=== PATIENT | female | born 1955 | race African-American/Black ===

== ENCOUNTER 2019-10-06 13:52 | Emergency (ER) | payer OTHER, MEDICAID ==
[~2019-10-06] VITALS: Ht 165.1 cm; Wt 55.0 kg
[2019-10-06] MEDS ORDERED: VANCOMYCIN 1 G PREMIX 200 ML IV ONE (14:45)
[2019-10-06] MEDS ORDERED: SODIUM CHLORIDE 0.9% 1000ML BAG (SEPSIS BOLUS) IV ONE (14:45)
[2019-10-06] MEDS ORDERED: PIPERACILLIN/TAZ 3.375G PREMIX 50 ML IV ONE (14:45)
[2019-10-06 15:23] LABS: BASOPHILS % 0.8 % (0.0-2.0); EOSINOPHILS % 1.5 % (0.0-5.0); HEMATOCRIT. 27.4 % (36.0-48.0); LYMPHOCYTES % 23.6 % (20.0-50.0); MEAN CORPUSCULAR VOLUME 84.9 fL (81.0-99.0); MEAN PLATELET VOLUME 8.8 fl (7.4-10.4); MONOCYTES % 8.4 % (2.0-8.0); NEUTROPHILS % 65.7 % (40.0-76.0); PLATELET 321 x1000/uL (130-400); RED BLOOD CELL COUNT 3.23 mill/uL (4.2-5.4); RED CELL DISTRIBUTION WIDTH 16.2 % (11.6-14.6)
[2019-10-06 15:29] LABS: CHLORIDE 95 mEq/L (98-107); INR 0.9; PROTHROMBIN TIME 9.4 sec (9.6-11.0)
[2019-10-06 15:34] LABS: ETHANOL BLOOD < 10 mg/dL
[2019-10-06] MEDS ORDERED: LOPERAMIDE HCL 2MG CAPSULE PO ONE (17:00)
[2019-10-06 22:54] VITALS: BP 122/68
== END 2019-10-06 23:18 | disposition short-term general hospital (02) ==
LOC: ER 13:52 → CANBEDREQ 10-07 00:08
DX: A41.9 Sepsis, unspecified organism (principal); I21.4 Non-ST elevation (NSTEMI) myocardial infarction; E11.9 Type 2 diabetes mellitus without complications; I11.0 Hypertensive heart disease with heart failure; I50.9 Heart failure, unspecified; Z86.73 Personal history of transient ischemic attack (TIA), and cerebral infarction without residual deficits
CPT/HCPCS: 36415; 70450; 71045; 74176; 80053; 80320; 83605; 83690; 83880; 84145; 84484; 85025; 85610; 86850; 86900; 86901; 87040; 87804; 93005; 99291; J2543; J3370; J7030; G0480

== ENCOUNTER 2022-09-21 13:09 | Inpatient (IN) | payer OTHER, MEDICAID ==
[~2022-09-21] VITALS: Ht 160 cm; Wt 55.8 kg
[2022-09-21] MEDS ORDERED: METOCLOPRAMIDE HCL 10MG/2ML VIAL IV ONE (13:30)
[2022-09-21] MEDS ORDERED: HYDRALAZINE 20MG/ML VIAL IV ONE (13:30)
[2022-09-21] MEDS ORDERED: DIPHENHYDRAMINE 50MG/ML VIAL IV ONE (13:30)
[2022-09-21 15:27] LABS: BASOPHILS % 0.8 % (0.0-2.0); EOSINOPHILS % 1.5 % (0.0-5.0); HEMATOCRIT. 36.7 % (36.0-48.0); HEMOGLOBIN. 12.1 g/dL (12.0-16.0); LYMPHOCYTES % 23.4 % (20.0-50.0); MEAN CORPUSCULAR HEMOGLOBIN 31.6 pg (28.0-32.0); MEAN CORPUSCULAR VOLUME 95.5 fL (81.0-99.0); MEAN PLATELET VOLUME 9.7 fl (7.4-10.4); MONOCYTES % 11.3 % (2.0-8.0); PLATELET 174 x1000/uL (130-400); RED BLOOD CELL COUNT 3.84 mill/uL (4.2-5.4); RED CELL DISTRIBUTION WIDTH 13.5 % (11.6-14.6)
[2022-09-21 15:33] LABS: CHLORIDE 95 mEq/L (98-107)
[2022-09-21] MEDS ORDERED: MORPHINE SULFATE 4 MG/ML CPJ (NOT FOR IM USE) IV STA (15:58)
[2022-09-21] MEDS ORDERED: ONDANSETRON HCL 4MG/2ML INJ IV STA (15:58)
[2022-09-21] MEDS ORDERED: ASPIRIN 81MG TABLET PO ONE (16:00)
[2022-09-21 17:08] LABS: INR 0.9; PARTIAL THROMBOPLASTIN TIME 28.2 sec (23.4-31.0)
[2022-09-21] MEDS ORDERED: CLONIDINE 0.2MG TABLET PO ONE (17:30)
[2022-09-21] MEDS ORDERED: IPRATROPIUM/ALBUTEROL 0.5-3(2.5)MG/3ML NEB NEB PRN (18:45)
[2022-09-21] MEDS ORDERED: DEXTROSE 50% WATER 50ML SYRINGE IV PRN (18:45)
[2022-09-21] MEDS ORDERED: ONDANSETRON HCL 4MG/2ML INJ IV PRN (18:45)
[2022-09-21] MEDS ORDERED: HYDROCODONE/ACETAMINOPHEN 5/325MG TABLET PO PRN (18:45)
[2022-09-21] MEDS ORDERED: CLONIDINE 0.1MG TABLET PO PRN (18:45)
[2022-09-21] MEDS ORDERED: ACETAMINOPHEN 325MG TABLET PO PRN ×2 (18:45)
[2022-09-21] MEDS: INSULIN LISPRO 100 UNITS/ML SUBCUT SCH ×2 (18:45→21:49)
[2022-09-21] MEDS ORDERED: MAGNESIUM/ALUMINUM HYDROXIDE/SIMETHICONE 30ML UDC PO PRN (18:45)
[2022-09-21 20:45] VITALS: BP 194/93
[2022-09-21 20:49] VITALS: BP 194/93
[2022-09-21] MEDS: HYDRALAZINE 20MG/ML VIAL IV PRN (21:46)
[2022-09-21] MEDS: INSULIN GLARGINE 100 UNITS/ML SUBCUT SCH (21:48)
[2022-09-21] MEDS: BLOOD SUGAR DIAGNOSTIC STRIP TEST SCH (21:49)
[2022-09-21 21:56] VITALS: BP 202/94
[2022-09-21 23:52] VITALS: BP 128/67
[2022-09-22] VITALS (11 sets, daily range): BP systolic 134–173; BP diastolic 67–91
[2022-09-22 01:58] LABS: CREATINE KINASE MB FRACTION 3.3 ng/mL (0.5-3.6)
[2022-09-22] MEDS: FUROSEMIDE 40MG/4ML VIAL IVP SCH ×2 (05:20→18:10)
[2022-09-22 06:40] LABS: BASOPHILS % 0.7 % (0.0-2.0); EOSINOPHILS % 3.2 % (0.0-5.0); HEMATOCRIT. 34.6 % (36.0-48.0); HEMOGLOBIN. 11.3 g/dL (12.0-16.0); LYMPHOCYTES % 32.7 % (20.0-50.0); MEAN CORPUSCULAR HEMOGLOBIN 31.3 pg (28.0-32.0); MEAN CORPUSCULAR VOLUME 95.7 fL (81.0-99.0); MEAN PLATELET VOLUME 9.4 fl (7.4-10.4); MONOCYTES % 11.4 % (2.0-8.0); PLATELET 171 x1000/uL (130-400); RED BLOOD CELL COUNT 3.62 mill/uL (4.2-5.4); RED CELL DISTRIBUTION WIDTH 13.4 % (11.6-14.6)
[2022-09-22 06:47] LABS: CREATINE KINASE MB FRACTION 3.1 ng/mL (0.5-3.6)
[2022-09-22] MEDS: INSULIN LISPRO 100 UNITS/ML SUBCUT SCH ×4 (08:00→21:00)
[2022-09-22] MEDS: BLOOD SUGAR DIAGNOSTIC STRIP TEST SCH ×4 (08:04→21:27)
[2022-09-22] MEDS ORDERED: AMLODIPINE 5MG TABLET PO SCH (09:00)
[2022-09-22 10:05] LABS: CHLORIDE 97 mEq/L (98-107)
[2022-09-22 10:29] LABS: HDL CHOLESTEROL 75 mg/dL (40-59); LDL CHOLESTEROL 139 mg/dL (5-100); T4 FREE 1.03 ng/dL (0.76-1.46)
[2022-09-22] MEDS ORDERED: HYDRALAZINE 20MG/ML VIAL IV NR (11:15)
[2022-09-22] MEDS: HYDRALAZINE 20MG/ML VIAL IV PRN (11:18)
[2022-09-22] MEDS ORDERED: REGADENOSON 0.4 MG/5 ML IV NR (11:30)
[2022-09-22] MEDS ORDERED: LOSARTAN POTASSIUM 100 MG TABLET PO SCH (12:00)
[2022-09-22] MEDS ORDERED: KCL 20MEQ/100ML PREMIX 100 ML IV NR (13:00)
[2022-09-22] MEDS ORDERED: AMLODIPINE 5MG TABLET PO NR (14:00)
[2022-09-22] MEDS ORDERED: HYDRALAZINE HCL 25MG TABLET PO SCH (14:00)
[2022-09-22] MEDS: HYDRALAZINE HCL 50MG TABLET PO SCH ×2 (14:48→21:27)
[2022-09-22] MEDS ORDERED: NALOXONE HCL 0.4MG/ML VIAL IV PRN (18:15)
[2022-09-22 18:20] LABS: HEPATITIS B SURFACE ANTIGEN NEGATIVE
[2022-09-22] MEDS: INSULIN GLARGINE 100 UNITS/ML SUBCUT SCH (21:26)
[2022-09-22] MEDS: METOPROLOL TARTRATE 25MG TABLET PO SCH (21:27)
[2022-09-23] VITALS (22 sets, daily range): BP systolic 127–184; BP diastolic 69–98
[2022-09-23] MEDS: FUROSEMIDE 40MG/4ML VIAL IVP SCH (06:00)
[2022-09-23] MEDS: HYDRALAZINE HCL 50MG TABLET PO SCH (06:38)
[2022-09-23 07:18] LABS: BASOPHILS % 0.4 % (0.0-2.0); EOSINOPHILS % 2.3 % (0.0-5.0); HEMATOCRIT. 37.1 % (36.0-48.0); HEMOGLOBIN. 12.3 g/dL (12.0-16.0); LYMPHOCYTES % 20.2 % (20.0-50.0); MEAN CORPUSCULAR HEMOGLOBIN 31.6 pg (28.0-32.0); MEAN CORPUSCULAR VOLUME 95.8 fL (81.0-99.0); MEAN PLATELET VOLUME 9.3 fl (7.4-10.4); MONOCYTES % 7.7 % (2.0-8.0); NEUTROPHILS % 69.4 % (40.0-76.0); PLATELET 183 x1000/uL (130-400); RED BLOOD CELL COUNT 3.88 mill/uL (4.2-5.4); RED CELL DISTRIBUTION WIDTH 13.9 % (11.6-14.6)
[2022-09-23] MEDS: BLOOD SUGAR DIAGNOSTIC STRIP TEST SCH ×3 (07:35→17:21)
[2022-09-23] MEDS: INSULIN LISPRO 100 UNITS/ML SUBCUT SCH ×3 (07:35→17:22)
[2022-09-23] MEDS: METOPROLOL TARTRATE 25MG TABLET PO SCH ×2 (08:35→09:00)
[2022-09-23] MEDS: AMLODIPINE 5MG TABLET PO SCH ×2 (08:35→12:07)
[2022-09-23] MEDS ORDERED: HYDRALAZINE HCL 50MG TABLET PO SCH ×2 (09:00→14:00)
[2022-09-23 10:01] LABS: PHOSPHORUS 5.6 mg/dL (2.5-4.9)
[2022-09-23] MEDS ORDERED: FUROSEMIDE 40MG TABLET PO SCH (13:30)
[2022-09-23] MEDS: HYDRALAZINE 20MG/ML VIAL IV PRN (16:25)
[2022-09-23 20:27] LABS: BASOPHILS % 0.6 % (0.0-2.0); EOSINOPHILS % 2.6 % (0.0-5.0); HEMATOCRIT. 39.1 % (36.0-48.0); HEMOGLOBIN. 12.8 g/dL (12.0-16.0); LYMPHOCYTES % 23.2 % (20.0-50.0); MEAN CORPUSCULAR HEMOGLOBIN 31.6 pg (28.0-32.0); MEAN CORPUSCULAR VOLUME 97.1 fL (81.0-99.0); MEAN PLATELET VOLUME 8.9 fl (7.4-10.4); MONOCYTES % 8.6 % (2.0-8.0); PLATELET 198 x1000/uL (130-400); RED BLOOD CELL COUNT 4.03 mill/uL (4.2-5.4); RED CELL DISTRIBUTION WIDTH 13.8 % (11.6-14.6)
[2022-09-23] MEDS ORDERED: LOSARTAN POTASSIUM 100 MG TABLET PO SCH (21:00)
[2022-09-24] VITALS: BP 176/81
== END 2022-09-24 00:15 | disposition short-term general hospital (02) | DRG 280 ==
LOC: ER 13:34 → 5EST 16:42 → SUPCPDRO 18:11
PROVIDERS: ADMIT Internal Medicine; ATTEND Internal Medicine
PROC: 5A1D70Z Performance of Urinary Filtration, Intermittent, Less than 6 Hours Per Day (ICD-10-PCS; principal; 2022-09-23)
DX: I16.1 Hypertensive emergency (principal); J96.01 Acute respiratory failure with hypoxia; I21.A1 Myocardial infarction type 2; N18.6 End stage renal disease; I13.2 Hypertensive heart and chronic kidney disease with heart failure and with stage 5 chronic kidney disease, or end stage renal disease; Z20.822 Contact with and (suspected) exposure to COVID-19; E11.22 Type 2 diabetes mellitus with diabetic chronic kidney disease; D63.1 Anemia in chronic kidney disease; E83.39 Other disorders of phosphorus metabolism; E11.65 Type 2 diabetes mellitus with hyperglycemia; E78.00 Pure hypercholesterolemia, unspecified; E03.8 Other specified hypothyroidism; I25.10 Atherosclerotic heart disease of native coronary artery without angina pectoris; H40.9 Unspecified glaucoma; F32.A Depression, unspecified; H54.8 Legal blindness, as defined in USA; I50.9 Heart failure, unspecified; Z99.2 Dependence on renal dialysis; Z79.4 Long term (current) use of insulin; Z79.899 Other long term (current) drug therapy; Z85.038 Personal history of other malignant neoplasm of large intestine; Z91.15 Patient's noncompliance with renal dialysis; Z86.73 Personal history of transient ischemic attack (TIA), and cerebral infarction without residual deficits; Z90.49 Acquired absence of other specified parts of digestive tract; Z90.710 Acquired absence of both cervix and uterus; Z91.81 History of falling; Z82.49 Family history of ischemic heart disease and other diseases of the circulatory system
CPT/HCPCS: 36415; 70551; 71045; 80048; 80053; 80061; 82550; 82553; 82962; 83036; 83735; 83880; 83970; 84100; 84439; 84443; 84484; 85025; 85651; 86705; 86709; 86803; 87340; 87426; 90935; 93005; 93306; 99291; J0360; J1200; J1815; J1940; J2270; J2405; J2765; J3480

== ENCOUNTER 2022-10-10 08:40 | Inpatient (IN) | payer OTHER, MEDICAID ==
[~2022-10-10] VITALS: Ht 162.6 cm; Wt 57.6 kg
[2022-10-10 10:11] LABS: BASOPHILS % 0.7 % (0.0-2.0); EOSINOPHILS % 2.2 % (0.0-5.0); HEMATOCRIT. 42.2 % (36.0-48.0); HEMOGLOBIN. 13.6 g/dL (12.0-16.0); LYMPHOCYTES % 22.2 % (20.0-50.0); MEAN CORPUSCULAR HEMOGLOBIN 31.9 pg (28.0-32.0); MEAN CORPUSCULAR VOLUME 98.6 fL (81.0-99.0); MEAN PLATELET VOLUME 9.6 fl (7.4-10.4); MONOCYTES % 6.4 % (2.0-8.0); NEUTROPHILS % 68.5 % (40.0-76.0); PLATELET 198 x1000/uL (130-400); RED BLOOD CELL COUNT 4.28 mill/uL (4.2-5.4); RED CELL DISTRIBUTION WIDTH 14.4 % (11.6-14.6)
[2022-10-10 10:17] LABS: CHLORIDE 96 mEq/L (98-107)
[2022-10-10] MEDS ORDERED: SODIUM CHLORIDE 0.9% 1,000 ML IV ONE (11:00)
[2022-10-10 11:10] LABS: CLARITY URINE CLOUDY (CLEAR); COLOR URINE YELLOW (YELLOW); KETONES URINE NEGATIVE (NEGATIVE); LEUKOCYTE ESTERASE URINE 2+ (NEGATIVE); NITRITE URINE NEGATIVE (NEGATIVE); OCCULT BLOOD URINE NEGATIVE (NEGATIVE); PH URINE 7.5 (4.5-8.0); PROTEIN URINE 4+ (NEGATIVE); SPECIFIC GRAVITY URINE 1.015 (1.005-1.030); UROBILINOGEN URINE 0.2 E.U./dL (0.2-1.0)
[2022-10-10] MEDS ORDERED: ASPIRIN 325MG EC TABLET PO ONE (11:45)
[2022-10-10] MEDS ORDERED: CEFTRIAXONE 1 G PREMIX 50 ML IV ONE (13:00)
[2022-10-10] MEDS ORDERED: ONDANSETRON HCL 4MG/2ML INJ IV PRN (15:30)
[2022-10-10] MEDS ORDERED: ENOXAPARIN 30MG/0.3ML SYR SUBCUT SCH (16:00)
[2022-10-10] MEDS ORDERED: HYDRALAZINE 20MG/ML VIAL IV PRN (17:15)
[2022-10-10] MEDS ORDERED: DOCUSATE SODIUM 100MG CAPSULE PO PRN (18:30)
[2022-10-10] MEDS ORDERED: DEXTROSE 50% WATER 50ML SYRINGE IV PRN (19:00)
[2022-10-10 19:12] LABS: HEPATITIS B SURFACE ANTIGEN NEGATIVE
[2022-10-10 20:00] VITALS: BP 196/93
[2022-10-10] MEDS: INSULIN LISPRO 100 UNITS/ML SUBCUT SCH (21:00)
[2022-10-10] MEDS: BLOOD SUGAR DIAGNOSTIC STRIP TEST SCH (21:25)
[2022-10-10] MEDS: HYDRALAZINE HCL 50MG TABLET PO SCH (21:37)
[2022-10-10 23:17] VITALS: BP 196/93
[2022-10-10] MEDS ORDERED: NPH,100I SQ (23:32)
[2022-10-10] MEDS ORDERED: CHOL400D7 PO (23:32)
[2022-10-10] MEDS ORDERED: KETO5DRO80 EACHEYE (23:32)
[2022-10-10] MEDS ORDERED: VITA0.4T19 PO (23:32)
[2022-10-10] MEDS ORDERED: CALC667C PO (23:32)
[2022-10-10] MEDS ORDERED: TERA5CAP4 PO (23:32)
[2022-10-10] MEDS ORDERED: CLON1PAT38 TD (23:32)
[2022-10-10] MEDS ORDERED: HYDR100T26 PO (23:32)
[2022-10-10] MEDS ORDERED: DORZ10DR12 EACHEYE (23:32)
[2022-10-10] MEDS ORDERED: ATOR-2 PO (23:32)
[2022-10-10] MEDS ORDERED: AMLO10TA80 PO (23:32)
[2022-10-10] MEDS ORDERED: GINS250C10 PO (23:32)
[2022-10-10] MEDS ORDERED: BISO5TAB13 PO (23:32)
[2022-10-10 23:59] LABS: CREATINE KINASE MB FRACTION 5.2 ng/mL (0.5-3.6)
[2022-10-11] VITALS (14 sets, daily range): BP systolic 94–226; BP diastolic 43–127
[2022-10-11] MEDS: HYDRALAZINE HCL 50MG TABLET PO SCH (05:37)
[2022-10-11] MEDS: INSULIN LISPRO 100 UNITS/ML SUBCUT SCH ×4 (06:55→21:00)
[2022-10-11] MEDS: BLOOD SUGAR DIAGNOSTIC STRIP TEST SCH ×4 (06:55→21:16)
[2022-10-11 07:45] LABS: BASOPHILS % 0.6 % (0.0-2.0); EOSINOPHILS % 2.4 % (0.0-5.0); HEMATOCRIT. 38.2 % (36.0-48.0); HEMOGLOBIN. 12.3 g/dL (12.0-16.0); LYMPHOCYTES % 21.3 % (20.0-50.0); MEAN CORPUSCULAR HEMOGLOBIN 31.2 pg (28.0-32.0); MEAN CORPUSCULAR VOLUME 96.5 fL (81.0-99.0); MEAN PLATELET VOLUME 9.8 fl (7.4-10.4); MONOCYTES % 7.4 % (2.0-8.0); NEUTROPHILS % 68.3 % (40.0-76.0); PLATELET 196 x1000/uL (130-400); RED BLOOD CELL COUNT 3.95 mill/uL (4.2-5.4); RED CELL DISTRIBUTION WIDTH 14.3 % (11.6-14.6)
[2022-10-11] MEDS ORDERED: CEFTRIAXONE SODIUM 1 G/VIAL IM SCH (08:00)
[2022-10-11 08:19] LABS: CREATINE KINASE MB FRACTION 4.4 ng/mL (0.5-3.6)
[2022-10-11 08:57] LABS: BASOPHILS % 0.6 % (0.0-2.0); EOSINOPHILS % 2.3 % (0.0-5.0); HEMATOCRIT. 37.3 % (36.0-48.0); HEMOGLOBIN. 12.4 g/dL (12.0-16.0); LYMPHOCYTES % 20.8 % (20.0-50.0); MEAN CORPUSCULAR HEMOGLOBIN 31.9 pg (28.0-32.0); MEAN CORPUSCULAR VOLUME 96.3 fL (81.0-99.0); MEAN PLATELET VOLUME 9.9 fl (7.4-10.4); MONOCYTES % 7.6 % (2.0-8.0); NEUTROPHILS % 68.7 % (40.0-76.0); PLATELET 203 x1000/uL (130-400); RED BLOOD CELL COUNT 3.88 mill/uL (4.2-5.4); RED CELL DISTRIBUTION WIDTH 14.2 % (11.6-14.6)
[2022-10-11] MEDS ORDERED: CLONIDINE HCL 0.2MG/24HR PATCH TD SCH (09:00)
[2022-10-11 09:22] LABS: PARTIAL THROMBOPLASTIN TIME 25.6 sec (23.4-31.0); PROTHROMBIN TIME 10.3 sec (9.6-11.0)
[2022-10-11 09:34] LABS: CHLORIDE 98 mEq/L (98-107)
[2022-10-11] MEDS ORDERED: LIDOCAINE HCL/PF 1% 10 MG/ML 5ML VIAL ONE ×2 (09:48→13:50)
[2022-10-11] MEDS: TERAZOSIN HCL 5MG CAPSULE PO SCH ×2 (09:52→21:23)
[2022-10-11] MEDS: AMLODIPINE 10MG TABLET PO SCH (09:52)
[2022-10-11] MEDS: ASPIRIN 81MG EC TABLET PO SCH (09:52)
[2022-10-11 09:53] LABS: HDL CHOLESTEROL 85 mg/dL (40-59); LDL CHOLESTEROL 84 mg/dL (5-100); PHOSPHORUS 3.5 mg/dL (2.5-4.9)
[2022-10-11] MEDS: HYDRALAZINE HCL 100MG TABLET PO SCH ×2 (09:53→21:23)
[2022-10-11] MEDS ORDERED: CEFTRIAXONE 1,000 MG in DEXTROSE 5% WATER 50 ML IV SCH (13:00)
[2022-10-11] MEDS: DORZOLAM/TIMOLOL 2.23/0.68% OPHTH DROPS 10ML EACHEYE SCH ×2 (13:03→17:12)
[2022-10-11 13:33] LABS: *AMPHETAMINES SCREEN URINE NEGATIVE (NEGATIVE); *BARBITURATES SCREEN URINE NEGATIVE (NEGATIVE); *BENZODIAZEPINES SCREEN URINE NEGATIVE (NEGATIVE); *COCAINE SCREEN URINE NEGATIVE (NEGATIVE); CANNABINOID URINE SCREEN NEGATIVE (NEGATIVE); METHADONE URINE SCREEN NEGATIVE (NEGATIVE); OPIATES URINE SCREEN NEGATIVE (NEGATIVE); PHENCYCLIDINE URINE SCREEN NEGATIVE (NEGATIVE)
[2022-10-11] MEDS ORDERED: HEPARIN 1000 UNITS/ML 10ML ONE (13:51)
[2022-10-11] MEDS: CEFTRIAXONE 1,000 MG in DEXTROSE 5% WATER 50 ML IV SCH (15:00)
[2022-10-11] MEDS: INSULIN GLARGINE 100 UNITS/ML SUBCUT SCH (15:04)
[2022-10-11] MEDS ORDERED: ATORVASTATIN CALCIUM 40MG TABLET PO SCH (21:00)
[2022-10-12] VITALS: BP 133/82
[2022-10-12 04:00] VITALS: BP 156/77
[2022-10-12 06:24] LABS: BASOPHILS % 0.4 % (0.0-2.0); EOSINOPHILS % 2.5 % (0.0-5.0); HEMATOCRIT. 34.3 % (36.0-48.0); HEMOGLOBIN. 11.2 g/dL (12.0-16.0); LYMPHOCYTES % 28.1 % (20.0-50.0); MEAN CORPUSCULAR HEMOGLOBIN 31.6 pg (28.0-32.0); MEAN PLATELET VOLUME 9.4 fl (7.4-10.4); MONOCYTES % 10.1 % (2.0-8.0); NEUTROPHILS % 58.9 % (40.0-76.0); PLATELET 169 x1000/uL (130-400); RED BLOOD CELL COUNT 3.53 mill/uL (4.2-5.4); RED CELL DISTRIBUTION WIDTH 14.6 % (11.6-14.6)
[2022-10-12] MEDS: INSULIN LISPRO 100 UNITS/ML SUBCUT SCH ×3 (06:28→16:41)
[2022-10-12] MEDS: BLOOD SUGAR DIAGNOSTIC STRIP TEST SCH ×3 (06:28→16:41)
[2022-10-12 07:33] LABS: CHLORIDE 106 mEq/L (98-107)
[2022-10-12 07:46] LABS: PHOSPHORUS 2.4 mg/dL (2.5-4.9)
[2022-10-12 08:00] VITALS: BP_SYST 130; BP_SYST 165; BP_DIAS 59; BP_DIAS 79
[2022-10-12] MEDS: ASPIRIN 81MG EC TABLET PO SCH (08:36)
[2022-10-12] MEDS: HYDRALAZINE HCL 100MG TABLET PO SCH ×3 (08:36→17:05)
[2022-10-12] MEDS: AMLODIPINE 10MG TABLET PO SCH (08:37)
[2022-10-12] MEDS: DORZOLAM/TIMOLOL 2.23/0.68% OPHTH DROPS 10ML EACHEYE SCH ×2 (08:37→17:06)
[2022-10-12] MEDS: TERAZOSIN HCL 5MG CAPSULE PO SCH (08:37)
[2022-10-12] MEDS: INSULIN GLARGINE 100 UNITS/ML SUBCUT SCH (10:49)
[2022-10-12] MEDS ORDERED: CLONIDINE 0.1MG TABLET PO PRN (11:15)
[2022-10-12 12:00] VITALS: BP 198/98
[2022-10-12 12:28] VITALS: BP 151/72
[2022-10-12] MEDS: CEFTRIAXONE 1,000 MG in DEXTROSE 5% WATER 50 ML IV SCH (14:40)
[2022-10-12] MEDS ORDERED: LIDOCAINE 5% PATCH TOP SCH (15:37)
[2022-10-12 16:00] VITALS: BP 139/77
[2022-10-13 09:09] LABS: VITAMIN D 25-OH 16.9 ng/mL (30.0-100.0)
== END 2022-10-12 18:43 | disposition short-term general hospital (02) | DRG 64 ==
LOC: ER 08:40 → 3WST 11:39 → EDBEDREQ 11:40 → EDBEDREQTM 11:40 → ENRESERV 19:12
PROVIDERS: ADMIT Internal Medicine; ATTEND Internal Medicine
PROC: 5A1D70Z Performance of Urinary Filtration, Intermittent, Less than 6 Hours Per Day (ICD-10-PCS; principal; 2022-10-11)
PROC: 02HV33Z Insertion of Infusion Device into Superior Vena Cava, Percutaneous Approach (ICD-10-PCS; 2022-10-11)
PROC: B548ZZA Ultrasonography of Superior Vena Cava, Guidance (ICD-10-PCS; 2022-10-11)
DX: I63.9 Cerebral infarction, unspecified (principal); I21.A1 Myocardial infarction type 2; N18.6 End stage renal disease; G93.40 Encephalopathy, unspecified; N39.0 Urinary tract infection, site not specified; E46 Unspecified protein-calorie malnutrition; I13.2 Hypertensive heart and chronic kidney disease with heart failure and with stage 5 chronic kidney disease, or end stage renal disease; E83.52 Hypercalcemia; E88.09 Other disorders of plasma-protein metabolism, not elsewhere classified; I16.0 Hypertensive urgency; Z20.822 Contact with and (suspected) exposure to COVID-19; E78.00 Pure hypercholesterolemia, unspecified; E11.649 Type 2 diabetes mellitus with hypoglycemia without coma; E11.22 Type 2 diabetes mellitus with diabetic chronic kidney disease; I50.9 Heart failure, unspecified; H40.9 Unspecified glaucoma; D63.1 Anemia in chronic kidney disease; E11.65 Type 2 diabetes mellitus with hyperglycemia; F17.200 Nicotine dependence, unspecified, uncomplicated; Z99.2 Dependence on renal dialysis; Z68.21 Body mass index [BMI] 21.0-21.9, adult; Z79.82 Long term (current) use of aspirin; Z79.899 Other long term (current) drug therapy; Z85.038 Personal history of other malignant neoplasm of large intestine; Z90.49 Acquired absence of other specified parts of digestive tract
CPT/HCPCS: 36415; 36556; 70551; 71045; 76937; 80053; 80061; 80305; 81003; 82306; 82330; 82550; 82553; 82652; 82962; 83036; 83735; 83970; 84100; 84439; 84443; 84484; 85025; 86705; 86709; 86803; 87340; 87426; 90935; 93005; 93306; 93880; 97162; 99291; C1750; C1752; J0696; J1642; J1644; J1650; J1815; J3490; J7060

== ENCOUNTER 2023-06-29 14:34 | Emergency (ER) | payer MEDICAID, OTHER ==
[~2023-06-29] VITALS: Ht 162.6 cm; Wt 61.0 kg
[~2023-06-29 14:34] MED LIST: AMLO10TA80 PO; ATOR-2 PO; BISO5TAB13 PO; CALC667C PO; CHOL400D7 PO; CLON1PAT38 TD; DORZ10DR32 EACHEYE; GINS250C10 PO; HYDR100T26 PO; KETO5DRO80 EACHEYE; NPH,100I SQ; TERA5CAP4 PO; VITA0.4T19 PO
[2023-06-29 14:36] VITALS: O2SAT 100
[2023-06-29 15:21] LABS: BASOPHILS % 0.6 % (0.0-2.0); EOSINOPHILS % 1.3 % (0.0-5.0); HEMOGLOBIN. 9.4 g/dL (12.0-16.0); MEAN CORPUSCULAR HEMOGLOBIN 31.5 pg (28.0-32.0); MEAN CORPUSCULAR HGB CONC 32.6 g/dL (31.0-37.0); MEAN CORPUSCULAR VOLUME 96.8 fL (81.0-99.0); MEAN PLATELET VOLUME 9.5 fl (7.4-10.4); MONOCYTES % 8.6 % (2.0-8.0); NEUTROPHILS % 74.5 % (40.0-76.0); PLATELET 206 x1000/uL (130-400); RED BLOOD CELL COUNT 2.99 mill/uL (4.2-5.4); RED CELL DISTRIBUTION WIDTH 14.5 % (11.6-14.6); WHITE BLOOD COUNT 8.7 x1000/uL (4.5-11.0)
[2023-06-29 15:41] LABS: CHLORIDE 101 mEq/L (98-107); INDEX HEMOLYSI 1 (1-3); INDEX ICTERIC 1 (1-4); INDEX LIPEMIC 1 (1-3); POTASSIUM 3.3 mEq/L (3.5-5.1); SODIUM 136 mEq/L (136-145)
[2023-06-29 15:50] LABS: ALANINE AMINOTRANSFERASE 12 IU/L (13-61); ALBUMIN 3.4 g/dL (3.4-5.0); ASPARTATE AMINOTRANSFERASE 14 IU/L (15-37); BILIRUBIN TOTAL 0.3 mg/dL (0.1-1.0); CALCIUM 9.4 mg/dL (8.5-10.1); CARBON DIOXIDE 32 mEq/L (21-32); GLUCOSE 89 mg/dL (70-105); PROTEIN TOTAL 8.1 g/dL (6.0-8.3); UREA NITROGEN BLOOD 23 mg/dL (7-21)
[2023-06-29 15:51] LABS: TROPONIN I HIGH SENSITIVITY 520 ng/L (<54)
[2023-06-29] MEDS ORDERED: ASPIRIN 81MG TABLET PO ONE (16:45)
[2023-06-29] MEDS ORDERED: DEXTROSE 10% WATER 500 ML IV NR (17:00)
[2023-06-29] MEDS ORDERED: DEXTROSE 10% WATER 500 ML IV ONE (17:15)
[2023-06-29 23:40] VITALS: BP 168/75; PULSE 52; RESP 10; TEMP 98.6
== END 2023-06-29 23:46 | disposition short-term general hospital (02) ==
LOC: ER 14:34 → CANBEDREQ 06-30 04:38
DX: E11.649 Type 2 diabetes mellitus with hypoglycemia without coma (principal); I12.0 Hypertensive chronic kidney disease with stage 5 chronic kidney disease or end stage renal disease; E11.22 Type 2 diabetes mellitus with diabetic chronic kidney disease; N18.6 End stage renal disease; R53.1 Weakness; Z99.2 Dependence on renal dialysis; Z79.899 Other long term (current) drug therapy
CPT/HCPCS: 36415; 71045; 80053; 82962; 84484; 85025; 93005; 96360; 99291

== ENCOUNTER 2024-08-28 07:12 | Inpatient (IN) | payer OTHER, MEDICAID, MEDICARE ==
[~2024-08-28] VITALS: Ht 160 cm; Wt 54.4 kg
[~2024-08-28 07:12] MED LIST changes: -CLON1PAT38 TD; +CLON1PAT41 TD; +HYDR100T11 PO; -HYDR100T26 PO
[2024-08-28 10:17] LABS: BASOPHILS % 0.5 % (0.0-2.0); EOSINOPHILS % 0.4 % (0.0-5.0); HEMATOCRIT. 47.8 % (36.0-48.0); HEMOGLOBIN. 15.1 g/dL (12.0-16.0); LYMPHOCYTES % 12.2 % (20.0-50.0); MEAN CORPUSCULAR HEMOGLOBIN 29.7 pg (28.0-32.0); MEAN CORPUSCULAR HGB CONC 31.6 g/dL (31.0-37.0); MEAN CORPUSCULAR VOLUME 94.1 fL (81.0-99.0); MEAN PLATELET VOLUME 9.8 fl (7.4-10.4); MONOCYTES % 4.4 % (2.0-8.0); NEUTROPHILS % 82.5 % (40.0-76.0); PLATELET 209 x1000/uL (130-400); RED BLOOD CELL COUNT 5.08 mill/uL (4.2-5.4); RED CELL DISTRIBUTION WIDTH 16.6 % (11.6-14.6)
[2024-08-28 10:19] LABS: WHITE BLOOD COUNT 13.3 x1000/uL (4.5-11.0)
[2024-08-28 10:27] LABS: PROTHROMBIN TIME 10.8 sec (9.6-11.0)
[2024-08-28 10:28] LABS: CHLORIDE 94 mEq/L (98-107); POTASSIUM 4.2 mEq/L (3.5-5.1); SODIUM 135 mEq/L (136-145)
[2024-08-28 10:29] LABS: CARBON DIOXIDE 30 mEq/L (21-32)
[2024-08-28 10:34] LABS: GLUCOSE 209 mg/dL (70-105)
[2024-08-28 10:35] LABS: UREA NITROGEN BLOOD 51 mg/dL (9-23)
[2024-08-28 10:36] LABS: ALANINE AMINOTRANSFERASE 33 IU/L (10-49); ALBUMIN 4.1 g/dL (3.2-4.8); ASPARTATE AMINOTRANSFERASE 50 IU/L (<34)
[2024-08-28 10:37] LABS: BILIRUBIN TOTAL < 0.2 mg/dL (0.1-1.0); PROTEIN TOTAL 8.1 g/dL (6.0-8.3)
[2024-08-28 10:41] LABS: BILIRUBIN DIRECT < 0.1 mg/dL (<=3.0)
[2024-08-28 10:42] LABS: CREATININE 6.6 mg/dL (0.6-1.0)
[2024-08-28] MEDS: CEFTRIAXONE 1GM/50ML 50 ML IV NR (10:42)
[2024-08-28] MEDS ORDERED: GUAIFENESIN 200MG/10ML SUGAR FREE UDC PO PRN (14:30)
[2024-08-28] MEDS ORDERED: ZOLPIDEM TARTRATE 5MG TABLET PO PRN (14:30)
[2024-08-28] MEDS ORDERED: NITROGLYCERIN 0.4MG TABLET SL SL PRN (14:30)
[2024-08-28] MEDS ORDERED: ENOXAPARIN 40MG/0.4ML SYR SUBCUT SCH (14:30)
[2024-08-28] MEDS ORDERED: DEXTROSE 50% WATER 50ML SYRINGE IV PRN (14:30)
[2024-08-28] MEDS ORDERED: ONDANSETRON HCL 4MG/2ML INJ IV PRN (14:30)
[2024-08-28] MEDS ORDERED: DOCUSATE SODIUM 100MG CAPSULE PO PRN (14:30)
[2024-08-28] MEDS ORDERED: IPRATROPIUM/ALBUTEROL 0.5-3(2.5)MG/3ML NEB NEB PRN (14:30)
[2024-08-28] MEDS ORDERED: MAGNESIUM/ALUMINUM HYDROXIDE/SIMETHICONE 30ML UDC PO PRN (14:30)
[2024-08-28] MEDS ORDERED: ACETAMINOPHEN 325MG TABLET PO PRN (14:30)
[2024-08-28 15:10] LABS: IRON 69 ug/dL (50-170)
[2024-08-28 15:13] LABS: TOTAL IRON BINDING CAPACITY 212 ug/dl (250-425)
[2024-08-28 15:14] LABS: T4 FREE 1.18 ng/dL (0.89-1.76); VITAMIN B12 SERUM 658 pg/mL (211-911)
[2024-08-28 15:15] LABS: THYROID STIMULATING HORMONE 2.22 uIU/mL (0.55-4.78)
[2024-08-28 15:16] LABS: FOLIC ACID (FOLATE) SERUM 17.56 ng/mL (>5.38)
[2024-08-28] MEDS: CLONIDINE 0.1MG TABLET PO PRN (15:41)
[2024-08-28] MEDS: FAMOTIDINE 20MG TABLET PO SCH (15:41)
[2024-08-28 16:00] VITALS: BP_SYST 235; BP_SYST 236; BP_DIAS 109; PULSE 79; RESP 16; RESP 20; TEMP 36.3918; O2SAT 98
[2024-08-28] MEDS: BLOOD SUGAR DIAGNOSTIC STRIP TEST SCH (16:40)
[2024-08-28 17:19] VITALS: BP 234/116; PULSE 88; RESP 16; TEMP 36.5848
[2024-08-28] MEDS: SEVELAMER CARBONATE 800 MG TABLET PO SCH (18:50)
[2024-08-28] MEDS: AMLODIPINE 5MG TABLET PO SCH (18:51)
[2024-08-28] MEDS: ENOXAPARIN 30MG/0.3ML SYR SUBCUT SCH (18:51)
[2024-08-28] MEDS: INSULIN LISPRO 100 UNITS/ML SUBCUT SCH (18:53)
[2024-08-28 20:00] VITALS: BP 152/77; PULSE 60; RESP 18; TEMP 35.78064; O2SAT 98
[2024-08-28] MEDS: TERAZOSIN HCL 5MG CAPSULE PO SCH (21:12)
[2024-08-28] MEDS: HYDRALAZINE HCL 100MG TABLET PO SCH (21:13)
[2024-08-28] MEDS: CLONIDINE 0.2MG TABLET PO SCH (21:13)
[2024-08-29] VITALS (11 sets, daily range): BP systolic 87–168; BP diastolic 52–98; PULSE 52–98; RESP 18–24; TEMP 35.66952–36.89184; O2SAT 94–100
[2024-08-29 00:36] LABS: CREATINE KINASE 51 IU/L (34-145)
[2024-08-29 00:38] LABS: CREATINE KINASE MB FRACTION 4.5 ng/mL (0.5-3.6)
[2024-08-29 01:01] LABS: TROPONIN I HIGH SENSITIVITY 449 ng/L (3.0-34)
[2024-08-29 07:15] LABS: BASOPHILS % 0.4 % (0.0-2.0); EOSINOPHILS % 2.7 % (0.0-5.0); HEMATOCRIT. 36.4 % (36.0-48.0); HEMOGLOBIN. 11.4 g/dL (12.0-16.0); LYMPHOCYTES % 29.6 % (20.0-50.0); MEAN CORPUSCULAR HEMOGLOBIN 29.1 pg (28.0-32.0); MEAN CORPUSCULAR HGB CONC 31.4 g/dL (31.0-37.0); MEAN CORPUSCULAR VOLUME 92.8 fL (81.0-99.0); MEAN PLATELET VOLUME 9.7 fl (7.4-10.4); MONOCYTES % 12.9 % (2.0-8.0); NEUTROPHILS % 54.4 % (40.0-76.0); PLATELET 177 x1000/uL (130-400); RED BLOOD CELL COUNT 3.93 mill/uL (4.2-5.4); RED CELL DISTRIBUTION WIDTH 16.4 % (11.6-14.6)
[2024-08-29 07:34] LABS: CHLORIDE 97 mEq/L (98-107); POTASSIUM 4.2 mEq/L (3.5-5.1); SODIUM 138 mEq/L (136-145)
[2024-08-29 07:35] LABS: CALCIUM 9.6 mg/dL (8.7-10.4); CARBON DIOXIDE 31 mEq/L (21-32)
[2024-08-29 07:40] LABS: GLUCOSE 81 mg/dL (70-105)
[2024-08-29 07:41] LABS: CREATINE KINASE MB FRACTION 4.5 ng/mL (0.5-3.6); UREA NITROGEN BLOOD 62 mg/dL (9-23)
[2024-08-29 07:42] LABS: ALANINE AMINOTRANSFERASE 18 IU/L (10-49); ALBUMIN 3.4 g/dL (3.2-4.8); ASPARTATE AMINOTRANSFERASE 27 IU/L (<34)
[2024-08-29 07:43] LABS: BILIRUBIN TOTAL < 0.2 mg/dL (0.1-1.0); PHOSPHORUS 5.3 mg/dL (2.5-4.9); PROTEIN TOTAL 6.3 g/dL (6.0-8.3)
[2024-08-29 08:41] LABS: CREATININE 7.2 mg/dL (0.6-1.0)
[2024-08-29] MEDS: FOLIC ACID/VITAMIN B COMP W-C TABLET PO SCH (09:26)
[2024-08-29] MEDS: ASPIRIN 81MG EC TABLET PO SCH (09:27)
[2024-08-29] MEDS: ACETAMINOPHEN 325MG TABLET PO PRN (09:34)
[2024-08-29] MEDS: CLONIDINE 0.1MG TABLET PO SCH (14:00)
== END 2024-08-29 19:35 | disposition short-term general hospital (02) | DRG 637 ==
LOC: ER 07:35 → EDBEDREQTM 12:08 → EDBEDREQ 12:08 → 7EST 13:18 → EDBEDREQSVC 13:20 → EDBEDREQTM 13:20
PROVIDERS: ADMIT Internal Medicine; ATTEND Internal Medicine
PROC: 5A1D70Z Performance of Urinary Filtration, Intermittent, Less than 6 Hours Per Day (ICD-10-PCS; principal; 2024-08-29)
DX: E11.649 Type 2 diabetes mellitus with hypoglycemia without coma (principal); G93.41 Metabolic encephalopathy; I13.2 Hypertensive heart and chronic kidney disease with heart failure and with stage 5 chronic kidney disease, or end stage renal disease; I16.1 Hypertensive emergency; E87.1 Hypo-osmolality and hyponatremia; N18.6 End stage renal disease; N25.81 Secondary hyperparathyroidism of renal origin; I50.9 Heart failure, unspecified; E11.22 Type 2 diabetes mellitus with diabetic chronic kidney disease; E78.00 Pure hypercholesterolemia, unspecified; E11.42 Type 2 diabetes mellitus with diabetic polyneuropathy; K21.9 Gastro-esophageal reflux disease without esophagitis; K59.00 Constipation, unspecified; E21.3 Hyperparathyroidism, unspecified; D64.9 Anemia, unspecified; Z85.038 Personal history of other malignant neoplasm of large intestine; Z99.2 Dependence on renal dialysis; Z79.82 Long term (current) use of aspirin; Z79.4 Long term (current) use of insulin; Z91.158 Patient's noncompliance with renal dialysis for other reason; Z86.73 Personal history of transient ischemic attack (TIA), and cerebral infarction without residual deficits; Z82.49 Family history of ischemic heart disease and other diseases of the circulatory system; Z90.49 Acquired absence of other specified parts of digestive tract; Z88.5 Allergy status to narcotic agent
CPT/HCPCS: 36415; 71045; 80048; 80053; 80061; 80076; 82550; 82553; 82607; 82746; 82962; 83036; 83540; 83550; 83735; 84100; 84439; 84443; 84484; 85025; 90935; 93005; 99291; J0696; J1650; J1815

== ENCOUNTER 2025-06-09 08:10 | Inpatient (IN) | payer OTHER, MEDICAID, MEDICARE ==
[~2025-06-09] VITALS: Ht 162.6 cm; Wt 60.6 kg
[2025-06-09] VITALS (11 sets, daily range): BP systolic 125–150; BP diastolic 58–99; PULSE 49–77; RESP 18–20; TEMP 35.9–37.3; O2SAT 98–100
[2025-06-09] MEDS: DEXTROSE 50% WATER 50ML SYRINGE IV ONE ×2 (08:28→08:41)
[2025-06-09] MEDS ORDERED: SODIUM BICARBONATE 8.4% 50MEQ/50ML VIAL IV ONE (08:30)
[2025-06-09] MEDS ORDERED: SODIUM BICARBONATE 8.4% 50MEQ/50ML VIAL IV NR (08:34)
[2025-06-09 08:39] LABS: BASOPHILS % 0.4 % (0.0-2.0); EOSINOPHILS % 1.5 % (0.0-5.0); HEMATOCRIT. 44.9 % (36.0-48.0); HEMOGLOBIN. 13.9 g/dL (12.0-16.0); LYMPHOCYTES % 17.7 % (20.0-50.0); MEAN PLATELET VOLUME 9.6 fl (7.4-10.4); MONOCYTES % 6.6 % (2.0-8.0); NEUTROPHILS % 73.8 % (40.0-76.0); PLATELET 180 x1000/uL (130-400); RED BLOOD CELL COUNT 4.58 mill/uL (4.2-5.4); RED CELL DISTRIBUTION WIDTH 17.5 % (11.6-14.6)
[2025-06-09] MEDS: CALCIUM GLUCONATE 100MG/ML 10ML VIAL IV ONE (08:41)
[2025-06-09] MEDS: SODIUM BICARBONATE 8.4% 50MEQ/50ML SYR IV NR (08:42)
[2025-06-09 08:53] LABS: UREA NITROGEN BLOOD 66 mg/dL (9-23)
[2025-06-09 08:54] LABS: ETHANOL BLOOD < 10 mg/dL (<10)
[2025-06-09] MEDS: ALBUTEROL (0.5%) 2.5MG/0.5ML NEB HHN ONE (09:06)
[2025-06-09 09:07] LABS: CREATININE 8.0 mg/dL (0.6-1.0); TROPONIN I HIGH SENSITIVITY 464 ng/L (3.0-34)
[2025-06-09] MEDS: ATROPINE SULFATE 1MG/10ML SYR IV ONE (09:48)
[2025-06-09] MEDS ORDERED: GUAIFENESIN 200MG/10ML SUGAR FREE UDC PO PRN (10:30)
[2025-06-09] MEDS ORDERED: IPRATROPIUM/ALBUTEROL 0.5-3(2.5)MG/3ML NEB HHN PRN (10:30)
[2025-06-09] MEDS ORDERED: ONDANSETRON HCL 4MG/2ML INJ IV PRN (10:30)
[2025-06-09] MEDS ORDERED: DOCUSATE SODIUM 100MG CAPSULE PO PRN (10:30)
[2025-06-09] MEDS ORDERED: MAGNESIUM/ALUMINUM HYDROXIDE/SIMETHICONE 30ML UDC PO PRN (10:30)
[2025-06-09] MEDS ORDERED: CLONIDINE 0.1MG TABLET PO PRN (10:30)
[2025-06-09] MEDS ORDERED: ACETAMINOPHEN 325MG TABLET PO PRN (10:30)
[2025-06-09] MEDS: ENOXAPARIN 30MG/0.3ML SYR SUBCUT SCH (11:21)
[2025-06-09] MEDS: PANTOPRAZOLE SODIUM 40 MG/VIAL IV SCH (11:22)
[2025-06-09] MEDS: AMLODIPINE 10MG TABLET PO NR (11:22)
[2025-06-09] MEDS ORDERED: DEXTROSE 50% WATER 50ML SYRINGE IV PRN (11:45)
[2025-06-09] MEDS: BLOOD SUGAR DIAGNOSTIC STRIP TEST SCH ×2 (12:13→12:22)
[2025-06-09] MEDS: INSULIN LISPRO 100 UNITS/ML SUBCUT SCH (13:00)
[2025-06-09] MEDS ORDERED: INSULIN LISPRO 100 UNITS/ML SUBCUT SCH (13:10)
[2025-06-09] MEDS: DEXTROSE 50% WATER 50ML SYRINGE IV PRN (20:22)
[2025-06-09 20:25] LABS: TROPONIN I HIGH SENSITIVITY 443 ng/L (3.0-34)
[2025-06-09] MEDS: ATORVASTATIN CALCIUM 40MG TABLET PO SCH (21:09)
[2025-06-10] VITALS (7 sets, daily range): BP systolic 126–188; BP diastolic 51–78; PULSE 57–69; RESP 18–20; TEMP 36.2–37.1; O2SAT 98–100
[2025-06-10] MEDS: HYDRALAZINE 20MG/ML VIAL IV PRN (00:35)
[2025-06-10 01:56] LABS: TROPONIN I HIGH SENSITIVITY 484 ng/L (3.0-34)
[2025-06-10 07:26] LABS: BASOPHILS % 0.4 % (0.0-2.0); EOSINOPHILS % 0.5 % (0.0-5.0); HEMATOCRIT. 35.6 % (36.0-48.0); HEMOGLOBIN. 11.4 g/dL (12.0-16.0); LYMPHOCYTES % 20.4 % (20.0-50.0); MEAN PLATELET VOLUME 10.0 fl (7.4-10.4); MONOCYTES % 12.3 % (2.0-8.0); NEUTROPHILS % 66.4 % (40.0-76.0); PLATELET 184 x1000/uL (130-400); RED BLOOD CELL COUNT 3.70 mill/uL (4.2-5.4); RED CELL DISTRIBUTION WIDTH 17.3 % (11.6-14.6)
[2025-06-10 07:43] LABS: TRIGLYCERIDE 114.0 mg/dL (0-150); UREA NITROGEN BLOOD 56.0 mg/dL (9-23)
[2025-06-10 07:44] LABS: LDL CHOLESTEROL 73.0 mg/dL (5-100)
[2025-06-10 07:45] LABS: PHOSPHORUS 4.9 mg/dL (2.5-4.9); T4 FREE 1.26 ng/dL (0.89-1.76)
[2025-06-10 08:25] LABS: CREATININE 6.6 mg/dL (0.6-1.0)
[2025-06-10] MEDS: AMLODIPINE 10MG TABLET PO SCH (09:50)
[2025-06-10] MEDS: TERAZOSIN HCL 5MG CAPSULE PO SCH (09:51)
[2025-06-10] MEDS: HYDRALAZINE HCL 50MG TABLET PO SCH (09:51)
[2025-06-10] MEDS: INS NPH/REG HM 70-30 10ML VIAL (HUMULIN 70-30) SUBCUT SCH (09:55)
[2025-06-10] MEDS: INSULIN LISPRO 100 UNITS/ML SUBCUT SCH (09:56)
[2025-06-10 21:04] LABS: BASOPHILS % 0.8 % (0.0-2.0); EOSINOPHILS % 1.3 % (0.0-5.0); HEMATOCRIT. 34.2 % (36.0-48.0); HEMOGLOBIN. 10.9 g/dL (12.0-16.0); LYMPHOCYTES % 26.9 % (20.0-50.0); MEAN PLATELET VOLUME 10.2 fl (7.4-10.4); MONOCYTES % 11.9 % (2.0-8.0); NEUTROPHILS % 59.1 % (40.0-76.0); PLATELET 186 x1000/uL (130-400); RED BLOOD CELL COUNT 3.51 mill/uL (4.2-5.4); RED CELL DISTRIBUTION WIDTH 17.2 % (11.6-14.6)
[2025-06-10 21:15] LABS: UREA NITROGEN BLOOD 62.0 mg/dL (9-23)
[2025-06-10 21:17] LABS: CREATININE 7.5 mg/dL (0.6-1.0)
[2025-06-11] VITALS (11 sets, daily range): BP systolic 100–169; BP diastolic 51–79; PULSE 54–75; RESP 18–20; TEMP 36.3–36.6696; O2SAT 97–100
[2025-06-11] MEDS: ACETAMINOPHEN 325MG TABLET PO PRN (04:28)
[2025-06-11 08:18] LABS: UREA NITROGEN BLOOD 63.0 mg/dL (9-23)
[2025-06-11 08:20] LABS: PHOSPHORUS 5.7 mg/dL (2.5-4.9)
[2025-06-11 08:39] LABS: BASOPHILS % 0.5 % (0.0-2.0); EOSINOPHILS % 1.6 % (0.0-5.0); HEMATOCRIT. 35.0 % (36.0-48.0); HEMOGLOBIN. 11.5 g/dL (12.0-16.0); LYMPHOCYTES % 32.9 % (20.0-50.0); MEAN PLATELET VOLUME 10.1 fl (7.4-10.4); MONOCYTES % 11.8 % (2.0-8.0); NEUTROPHILS % 53.2 % (40.0-76.0); PLATELET 174 x1000/uL (130-400); RED BLOOD CELL COUNT 3.61 mill/uL (4.2-5.4); RED CELL DISTRIBUTION WIDTH 16.9 % (11.6-14.6)
[2025-06-11] MEDS: INS NPH/REG HM 70-30 10ML VIAL (HUMULIN 70-30) SUBCUT SCH (09:00)
[2025-06-11 09:18] LABS: CREATININE 8.1 mg/dL (0.6-1.0)
[2025-06-11] MEDS: BRIMONIDINE 0.2% OPHTH DROPS 5ML BOTHEYE SCH (11:27)
[2025-06-11] MEDS: DORZOLAM/TIMOLOL 2%/0.5% OPHTH DROPS 10ML BOTHEYE SCH (11:28)
[2025-06-12] VITALS (12 sets, daily range): BP systolic 121–183; BP diastolic 55–88; PULSE 59–76; RESP 15–20; TEMP 36.1–36.6; O2SAT 96–99
[2025-06-12] MEDS: HYDRALAZINE HCL 100MG TABLET PO SCH (09:24)
[2025-06-12] MEDS: BRIMONIDINE 0.2% OPHTH DROPS 5ML BOTHEYE SCH (18:00)
== END 2025-06-12 19:15 | disposition short-term general hospital (02) | DRG 637 ==
LOC: ER 08:10 → 7WST 09:35 → ENRESERV 09:54
PROVIDERS: ADMIT Internal Medicine; ATTEND Internal Medicine
PROC: 5A1D70Z Performance of Urinary Filtration, Intermittent, Less than 6 Hours Per Day (ICD-10-PCS; principal; 2025-06-09)
PROC: 5A1D70Z Performance of Urinary Filtration, Intermittent, Less than 6 Hours Per Day (ICD-10-PCS; 2025-06-11)
PROC: 5A1D70Z Performance of Urinary Filtration, Intermittent, Less than 6 Hours Per Day (ICD-10-PCS; 2025-06-12)
DX: E11.649 Type 2 diabetes mellitus with hypoglycemia without coma (principal); G92.8 Other toxic encephalopathy; I21.A1 Myocardial infarction type 2; I13.2 Hypertensive heart and chronic kidney disease with heart failure and with stage 5 chronic kidney disease, or end stage renal disease; N18.6 End stage renal disease; E11.22 Type 2 diabetes mellitus with diabetic chronic kidney disease; D64.9 Anemia, unspecified; E11.42 Type 2 diabetes mellitus with diabetic polyneuropathy; I50.9 Heart failure, unspecified; E11.319 Type 2 diabetes mellitus with unspecified diabetic retinopathy without macular edema; Z99.2 Dependence on renal dialysis; I69.349 Monoplegia of lower limb following cerebral infarction affecting unspecified side; E78.5 Hyperlipidemia, unspecified; H54.62 Unqualified visual loss, left eye, normal vision right eye; E83.52 Hypercalcemia; K21.9 Gastro-esophageal reflux disease without esophagitis; T50.905A Adverse effect of unspecified drugs, medicaments and biological substances, initial encounter; Z82.49 Family history of ischemic heart disease and other diseases of the circulatory system; Z91.158 Patient's noncompliance with renal dialysis for other reason; Z79.4 Long term (current) use of insulin; Z79.899 Other long term (current) drug therapy; Z85.038 Personal history of other malignant neoplasm of large intestine; Z90.49 Acquired absence of other specified parts of digestive tract; Z90.710 Acquired absence of both cervix and uterus
CPT/HCPCS: 36415; 71045; 80048; 80061; 80320; 82550; 82962; 83036; 84100; 84439; 84443; 84484; 85025; 90935; 93005; 93970; 94640; 97162; 97166; 97530; 99291; J0360; J0461; J0610; J1650; J1815; J2470; J3490; G0480